=== PATIENT | female | born 1990 | race Caucasian/White ===

== ENCOUNTER 2017-11-30 21:07 | Emergency (ER) | payer OTHER, MEDICAID ==
[~2017-11-30] VITALS: Ht 160 cm; Wt 56.7 kg
[2017-11-30 21:11] VITALS: BP 134/80
--- NOTE | 2017-11-30 21:14 | NUR ---
TO LOBBY A/W BED, ANNA MARIE ALEXIS NOTED
--- NOTE | 2017-11-30 21:27 | NUR ---
PATIENT AMBULATED TO ER BED 1
--- NOTE | 2017-11-30 21:27 | NUR ---
27/F CAME IN W C/O LOWER BACK PAIN AND EXCESSIVE URINATION X 4 DAYS. REPORTS FEVER. DENIES HEMATURIA/DYSURIA, N/V/D. DENIES OTHER PMH
[2017-11-30] MEDS ORDERED: LEVOFLOXACIN 500 MG TAB PO ONE (22:05)
[2017-11-30] MEDS ORDERED: IBUPROFEN 800 MG TAB PO ONE (22:05)
[2017-11-30] MEDS ORDERED: PHENAZOPYRIDINE 100 MG TAB PO ONE (22:05)
[2017-11-30 22:22] VITALS: BP 120/67
--- NOTE | 2017-11-30 22:22 | NUR ---
Patient discharged with v/s stable. Written and verbal after care instructions given and explained. Patient alert, oriented and verbalized understanding of instructions. Ambulatory with steady gait. All questions addressed prior to discharge. ID band removed. Patient advised to follow up with PMD. Rx of MOTRIN, PYRIDIUM, CIPROFLOXACIN HYDROCHLORIDE given. Patient educated on indication of medication including possible reaction and side effects. Opportunity to ask questions provided and answered.
== END 2017-11-30 22:22 | disposition home or self-care (01) ==
LOC: MED 21:07
DX: S39.012A Strain of muscle, fascia and tendon of lower back, initial encounter (principal); N39.0 Urinary tract infection, site not specified; X58.XXXA Exposure to other specified factors, initial encounter; Y93.89 Activity, other specified; Y92.89 Other specified places as the place of occurrence of the external cause; Y99.8 Other external cause status
CPT/HCPCS: 81002; 81025; 99284